=== PATIENT | male | born 1995 | race Two or more races ===

== ENCOUNTER 2018-06-13 20:27 | Emergency (ER) | payer OTHER ==
[2018-06-13] MEDS: CYCLOBENZAPRINE 10 MG TAB PO (23:25)
[2018-06-13] MEDS: KETOROLAC 60 MG/2 ML VIAL (J1885) IM (23:26)
== END 2018-06-14 00:27 | disposition home or self-care (01) ==
LOC: M ED 06-14 00:27
DX: M54.5 Low back pain (principal); F17.200 Nicotine dependence, unspecified, uncomplicated
CPT/HCPCS: J1885

== ENCOUNTER 2018-06-24 14:30 | Emergency (ER) | payer OTHER ==
[2018-06-24] MEDS: BACLOFEN 10 MG TAB PO (16:03)
[2018-06-24] MEDS: predniSONE 20 MG TAB PO (16:03)
[2018-06-24] MEDS: KETOROLAC 60 MG/2 ML VIAL (J1885) IM (16:13)
== END 2018-06-24 17:32 | disposition home or self-care (01) ==
LOC: M ED 14:30
DX: M54.5 Low back pain (principal)
CPT/HCPCS: J1885